=== PATIENT | male | born 1950 ===

== ENCOUNTER 2017-02-05 10:37 | Day surgery (SDC) | payer MEDICARE ==
[2017-02-05 11:22] VITALS: RESP 18
[2017-02-05] MEDS ORDERED: Iohexol 300 10 ML ONE (11:28)
[2017-02-05] MEDS ORDERED: MethylPREDNISolone Depo 40 mg/ml Inj ONE (11:28)
[2017-02-05] MEDS ORDERED: Lidocaine 1% Inj (20ml) ONE (11:29)
[2017-02-05] MEDS ORDERED: Bupivacaine HCl 0.25% PF (10 ml) Inj ONE (11:29)
[2017-02-05] MEDS ORDERED: Bupivacaine HCl 0.5% PF (10 ml) Inj ONE (11:29)
[2017-02-05 11:46] VITALS: BMI 25.0
[2017-02-05] MEDS ORDERED: Midazolam 2 MG/2 ML VIAL ONE (11:47)
[2017-02-05] MEDS ORDERED: Lactated Ringer's 1,000 ML IV ONE (11:50)
[2017-02-05] MEDS ORDERED: Lidocaine 1% Inj (20ml) IJ ONE (11:55)
[2017-02-05] MEDS ORDERED: methylPREDNISolone Depo 80 mg/ml Inj IM ONE (11:55)
[2017-02-05] MEDS ORDERED: Bupivacaine HCl 0.25% PF (10 ml) Inj IJ ONE (11:55)
[2017-02-05] MEDS ORDERED: Iohexol 300 10 ML IJ ONE (11:55)
[2017-02-05] MEDS ORDERED: HYDROmorphone 0.5 mg/0.5 ml ISec IVP PRN (12:16)
[2017-02-05] MEDS ORDERED: Oxycodone/Acetaminophen 5/325 mg Tab PO PRN (12:17)
--- NOTE | 2017-02-05 12:46 | OP ---
PROCEDURE DATE: 02/05/2017 PREOPERATIVE DIAGNOSIS: Cervical facet syndrome. POSTOPERATIVE DIAGNOSIS: Cervical facet syndrome. PROCEDURE: Left C3, C4 and C5 medial branch nerve block. ANESTHESIOLOGIST: Dr. Ballesteros. SURGEON: Dr. Castañeda. ANESTHESIA TYPE: Monitored anesthesia care. COMPLICATIONS: None. SPECIMEN: None. PROCEDURE: After re-discussion of the procedure with the patient including its risks, benefits, alte rnatives, outcome data, possibility of no effect or increased pain, the patient consented to the proc edure. He denies any recent infections, bleeding tendencies, or being on anticoagulants. Decision w as then made to proceed to the OR. The patient was placed on the fluoroscopy table in a prone position with 2 pillows underneath his kne e. The head and neck was then placed in a head frame. The cervical spine was then prepped and drape d in a usual sterile fashion and sterile technique was adhered to during the entire procedure. The C 3, C4 and C5 medial branch nerves are located at the lateral border of the C3, C4 and C5 vertebrae. The skin overlying the 3 above target areas was then infiltrated with 1% lidocaine using a 25 gauge n eedle. Subsequently, a 22 gauge 3-1/2 inch spinal needle was then incrementally advanced under fluor oscopic guidance until tip of the needle made bony contact with the target areas. The needle was the n walked slightly laterally and anteriorly. After satisfactory positioning of all 3 needles, approxi mately 0.5 mL of Isovue contrast was injected under live view to rule out intravenous uptake. After doing so, approximately 2 mL of 0.25% Marcaine and Depo-Medrol mixture was injected. The needle was then removed and patient's neck was cleaned and dried and Band-Aids were applied. The patient was then transferred to the recovery area in good condition without any signs of [employer] [place] or any neurological deficits. He will have a followup in our office in approximately 2-4 weeks. En-Salbador Castañeda MD cc: [phone] TT: 02/05/2017 12:46:03 lola
[2017-02-05 13:16] VITALS: TEMP 97.9
[2017-02-05 14:04] VITALS: BP 147/66; PULSE 98; O2SAT 96
--- NOTE | 2017-02-05 16:54 | RAD ---
PROCEDURE: Fluoroscopy up to 1 hr. HISTORY: PAIN MANAGEMENT COMPARISON: None TECHNIQUE: Standard protocol for this study/examination. FINDINGS: Total fluoroscopic time (continuous mode) utilized during the procedure: 35.8 seconds. IMPRESSION: Submitted images from the current procedure: 2.0.
== END 2017-02-05 14:15 | disposition home or self-care (01) ==
LOC: H.OPSURG 10:37
PROVIDERS: ATTEND Anesthesiology
DX: M53.82 Other specified dorsopathies, cervical region (principal); E11.9 Type 2 diabetes mellitus without complications; J45.909 Unspecified asthma, uncomplicated
CPT/HCPCS: 64520; 82948; J1030; J1040; J2250; J3010; J7120; Q9967